=== PATIENT | male | born 1950 | race Caucasian/White ===

== ENCOUNTER 2018-03-19 08:09 | Observation (INO) ==
[2018-03-19] MEDS ORDERED: Morphine Inj 4 MG/ML Vial IV.PUSH PRN (12:53)
[2018-03-19] MEDS ORDERED: Acetaminophen 500 MG Tablet PO PRN (12:53)
[2018-03-19] MEDS ORDERED: Temazepam 15 MG Capsule PO PRN (12:53)
--- NOTE | 2018-03-19 13:44 | P.HP ---
History of Present Illness Primary Care Physician: Frankie Robin History of Present Illness: 68-year-old male with known history of coronary disease, hyper lipidemia, benign prostatic hypertrophy, idiopathic thrombocytopenia purpura who presented to the emergency department because of epigastric discomfort. Patient states that for the last few days he has been experiencing a constant sensation in his epigastric region which he describes as a mild dull achy sensation without any radiation to. Patient states that it is very difficult to quantify when he is resting, however but whenever he gets up and moves the discomfort will go to a 4/10 on a pain scale. Patient states that he did try to take some Zantac without any benefit. He denied any diaphoresis, nausea, vomiting, shortness of breath, dizziness, lightheadedness. Patient indicates that he did have discomfort like this 9 years ago in which he underwent stress test at that time by Dr. Garnett, patient was found to have abnormal stress test and proceeded to cardiac catheterization where he had one stent placement. Since then he has been doing well without any pain. He does not follow up with any industrial economist in a while. Because his chest discomfort has been more pronounced over the last few days, between his girlfriend and his other friends he was forced to go to the ER for evaluation. Patient had workup and was unremarkable. The patient was requested to be followed in the chest pain center for further evaluation and management. - Diagnosis (1) Chest pain (2) Hyperlipidemia (3) Anxiety Inpatient Certification: I certify that the inpatient services were ordered in accordance with Medicare regulations governing the order. This includes certification that hospital inpatient services are reasonable and necessary and in the case of services not specified as inpatient-only under 42 CFR 419.22(n), that they are appropriately provided as inpatient services in accordance to with the 2-midnight benchmark under 43 CFR 412.3(e) Review of Systems All other systems reviewed negative except as stated in HPI Cardiovascular: Reports chest pain PMFSH - History History Provided By: Patient - Medical History Medical History: Medical History (Last Reviewed 03/19/18 @ 13:38 by ARMEN Saenz) Anxiety Avascular necrosis Cryoglobulinemia High cholesterol History of left heart catheterization Idiopathic thrombocytopenia purpura Prostate disorder Transverse myelitis - Surgical History Surgical History: Surgical History (Last Reviewed 03/19/18 @ 13:38 by ARMEN Saenz) Hx of bilateral hip replacements Hx of heart artery stent Hx of lymph node excision Hx of splenectomy - Family History Family History: Family History (Last Updated 03/19/18 @ 13:25 by ARMEN Saenz) Father Heart disease - Tobacco History Smoking Status: Former smoker Tobacco Type: Cigarettes Number of Pack Years (if former smoker): 50 Smoking End Date: 2014 - Alcohol History How Often Do You Have a Drink Containing Alcohol: 4 or more times a week ( Patient drinks between 3-6 beers daily) Medications and Allergies Active Medications: Active Medications Acetaminophen (Tylenol) 500 mg PO Q4H PRN PRN Reason: HEADACHE Hydrocodone Bitart/Acetaminophen ([place] 7.5/325) 1 tab PO Q4H PRN PRN Reason: PAIN SCALE 1 TO 7 Morphine Sulfate (Morphine Inj) 2 mg IV.PUSH Q4H PRN PRN Reason: PAIN SCALE 8 TO 10 Nitroglycerin (Nitrostat Sl) 0.4 mg SL Q5M PRN PRN Reason: CHEST PAIN Ondansetron HCl (Zofran Inj) 4 mg IV.PUSH Q6H PRN PRN Reason: NAUSEA Sodium Chloride (Ns Flush) 2 ml IV.FLUSH BID KEVEN Sodium Chloride (Ns Flush) 2 ml IV.FLUSH PRN PRN PRN Reason: FLUSH AFTER USING IV ACCESS Temazepam (Restoril) 15 mg PO HS PRN PRN Reason: INSOMNIA Allergies Allergy/AdvReac Type Severity Reaction Status Date / Time diclofenac Allergy Severe Bleeding Verified 03/19/18 08:32 etodolac Allergy Severe Bleeding Verified 03/19/18 08:32 flurbiprofen Allergy Severe Bleeding Verified 03/19/18 08:32 ibuprofen Allergy Severe Bleeding Verified 03/19/18 08:32 indomethacin Allergy Severe Bleeding Verified 03/19/18 08:32 ketoprofen Allergy Severe Bleeding Verified 03/19/18 08:32 ketorolac Allergy Severe Bleeding Verified 03/19/18 08:32 naproxen Allergy Severe Bleeding Verified 03/19/18 08:32 oxaprozin Allergy Severe Bleeding Verified 03/19/18 08:32 Influenza Virus Vaccines AdvReac Severe Dizziness Verified 03/19/18 08:32 Home Medications Medication Instructions Recorded Confirmed Type alprazolam [Xanax] 0.5 mg PO BID 03/19/18 03/19/18 History aspirin [Xiomy Chewable Aspirin] 81 mg PO DAILY 03/19/18 03/19/18 History cyclobenzaprine 10 mg PO TID 03/19/18 03/19/18 History simvastatin 40 mg PO QPM 03/19/18 03/19/18 History tamsulosin [Flomax] 0.4 mg PO DAILY 03/19/18 03/19/18 History Exam Vital signs: Vital Signs 03/19/18 12:52 Temperature 96.5 F L Pulse Rate 63 Respiratory Rate 17 Blood Pressure 166/74 H Pulse Oximetry 95 Narrative: GENERAL: Well-developed, well-nourished, in no acute distress. alert and orientated HEENT: Head is normocephalic without any lesions or masses noted. Facial features are symmetric. Eyes: Pupils equal round reactive to light. Extraocular muscles are intact. Conjunctivae were clear. Oropharyngeal: Pharynx without any erythema edema. Tongue is midline without deviation. Buccal mucosa is moist without any masses or lesions NECK: Supple without any masses. Trachea midline no deviation. No JVD, no bruits are appreciated CARDIAC: Regular rhythm, regular rate. S1/S2 are heard. No murmurs gallops or rubs. LUNGS: Clear to auscultation bilaterally. No wheeze, rhonchi or rales. No use of accessory muscles on inspiration or expiration. ABDOMEN: Soft, nontender. Nondistended. Bowel sounds heard in all 4 quadrants. No organomegaly or masses. Negative rebound, negative guarding EXTREMITIES: No edema, pulses are equal bilaterally. No cyanosis or clubbing NEUROLOGY: Mood and affect appear appropriate. Cranial nerves II through XII grossly intact. Muscle strength 5/5 in upper and lower extremities bilaterally. Deep tendon reflexes are 2+ in upper and lower extremities bilaterally. Caprini VTE Risk Assessment Caprini VTE Risk Assessment: No/Low Risk (score <= 1) Caprini Risk Assessment Model: Point Value = 1 Point Value = 2 Point Value = 3 Point Value = 5 Age 41-60 Minor surgery BMI > 25 kg/m2 Swollen legs Varicose veins or History of unexplained or recurrent spontaneous Oral contraceptives or hormone replacement Sepsis (< 1 month) Serious lung disease, including pneumonia (< 1 month) Abnormal pulmonary function Acute myocardial infarction Congestive heart failure (< 1 month) History of inflammatory bowel disease Medical patient at bed rest Age 61-74 Arthroscopic surgery Major open surgery (> 45 min) Laparoscopic surgery (> 45 min) Malignancy Confined to bed (> 72 hours) Immobilizing plaster cast Central venous access Age >= 75 History of VTE Family history of VTE Factor V Leiden Prothrombin [id number] Lupus anticoagulant Anticardiolipin antibodies Elevated serum homocysteine Heparin-induced thrombocytopenia Other congenital or acquired thrombophilia Stroke (< 1 month) Elective arthroplasty Hip, pelvis, or leg fracture Acute spinal cord injury (< 1 month) Prophylaxis Regimen: Total Risk Factor Score Risk Level Prophylaxis Regimen 0-1 Low Early ambulation 2 Moderate Order ONE of the following: *Sequential Compression Device (SCD) *Heparin 5000 units SQ BID 3-4 Higher Order ONE of the following medications: *Heparin 5000 units SQ TID *Enoxaparin/Lovenox 40 mg SQ daily (WT < 150 kg, CrCl > 30 mL/min) *Enoxaparin/Lovenox 30 mg SQ daily (WT < 150 kg, CrCl > 10-29 mL/min) *Enoxaparin/Lovenox 30 mg SQ BID (WT < 150 kg, CrCl > 30 mL/min) AND/OR *Sequential Compression Device (SCD) 5 or more Highest Order ONE of the following medications: *Heparin 5000 units SQ TID (Preferred with Epidurals) *Enoxaparin/Lovenox 40 mg SQ daily (WT < 150 kg, CrCl > 30 mL/min) *Enoxaparin/Lovenox 30 mg SQ daily (WT < 150 kg, CrCl > 10-29 mL/min) *Enoxaparin/Lovenox 30 mg SQ BID (WT < 150 kg, CrCl > 30 mL/min) AND *Sequential Compression Device (SCD) Assessment and Plan - Assessment (1) Chest pain Code(s): R07.9 - Chest pain, unspecified Status: Acute Plan: -Patient does have increased risk factors include age, male, heart disease, family history of heart disease, history of tobacco use -We will continue ruled patient out for acute coronary event with serial cardiac enzymes and serial EKGs -If patient has been ruled out for acute coronary event will anticipate myocardial perfusion study in the morning to rule out any underlying ischemia -Continue with aspirin, statin, nitroglycerin as needed for chest pain -[place], morphine for pain control -Continue monitor telemetry -Continue oxygen (2) Hyperlipidemia Code(s): E78.5 - Hyperlipidemia, unspecified Status: Acute Plan: -Patient home medication be continued -Check lipid panel in the a.m. (3) Anxiety Code(s): F41.9 - Anxiety disorder, unspecified Status: Acute Plan: -Patient's home medication will be continued - Plan DVT prevention -Sequential compression devices
[2018-03-19 16:03] LABS: Creatine Kinase 121 U/L (39-308)
[2018-03-19] MEDS: ALPRAZolam 0.5 MG Tablet PO SCH (22:06)
[2018-03-20] MEDS: ALPRAZolam 0.5 MG Tablet PO SCH (09:21)
--- NOTE | 2018-03-20 09:35 | P.PN ---
Subjective Interval history: 68-year-old male who is seen in follow-up today for chest discomfort. Patient states that he has had intermittent mild chest discomfort throughout the night. Vital signs remained stable, patient is afebrile. Physical Exam Vital signs: Vital Signs 03/19/18 12:52 03/19/18 16:00 03/19/18 16:56 Temperature 96.5 F L 97.2 F L Pulse Rate 63 66 Respiratory Rate 17 17 Blood Pressure 166/74 H 138/75 Pulse Oximetry 95 95 95 03/19/18 20:00 03/20/18 00:00 03/20/18 04:00 Temperature 97.2 F L 97.1 F L 97.3 F L Pulse Rate 67 66 65 Respiratory Rate 20 18 19 Blood Pressure 139/60 115/67 130/59 L Pulse Oximetry 97 97 95 03/20/18 07:16 Temperature 97.4 F L Pulse Rate 68 Respiratory Rate 20 Blood Pressure 117/68 Pulse Oximetry 97 Intake & Output 03/19/18 03/20/18 03/20/18 18:59 06:59 18:59 Intake Total 720 / 720 0 / 0 Balance 720 / 720 0 / 0 Intake: Oral 720 / 720 0 / 0 Other: # Voids 2 3 # Bowel Movements 0 0 Narrative: GENERAL: Well-developed, well-nourished, in no acute distress. alert and orientated HEENT: Head is normocephalic without any lesions or masses noted. Facial features are symmetric. Eyes: Extraocular muscles are intact. Conjunctivae were clear. NECK: Supple without any masses. Trachea midline no deviation. No JVD, CARDIAC: Regular rhythm, regular rate. S1/S2 are heard. No murmurs gallops or rubs. LUNGS: Clear to auscultation bilaterally. No wheeze, rhonchi or rales. No use of accessory muscles on inspiration or expiration. ABDOMEN: Soft, nontender. Nondistended. Bowel sounds heard in all 4 quadrants. No organomegaly or masses. Negative rebound, negative guarding EXTREMITIES: No edema, pulses are equal bilaterally. No cyanosis or clubbing NEUROLOGY: Mood and affect appear appropriate. Cranial nerves II through XII grossly intact. Moving all extremities, speech is clear Results - Labs Laboratory Results - last 24 hr 03/19/18 15:25 Total Creatine Kinase 121 Troponin I Less than 0.02 L - Imaging Myocardial Perfusion Scan Nuc Med 03/20/18 06:00 CONCLUSION: 1. No fixed or reversible wall defect to suggest ischemia or infarction. 2. Normal wall motion and calculated ejection fraction. - Procedures None Assessment and Plan - Assessment (1) Chest pain Code(s): R07.9 - Chest pain, unspecified Status: Inactive Plan: -Patient does have increased risk factors include age, male, heart disease, family history of heart disease, history of tobacco use -Patient had been ruled out for acute coronary event with serial cardiac enzymes are negative, serial EKGs do not show any changes -Myocardial perfusion study was performed and indicated normal study, no signs of ischemia, low risk -Continue with aspirin, statin, nitroglycerin as needed for chest pain -[place], morphine for pain control -Continue monitor telemetry -Continue oxygen (2) Hyperlipidemia Code(s): E78.5 - Hyperlipidemia, unspecified Status: Acute Plan: -Patient home medication be continued -Awaiting lipid panel (3) Anxiety Code(s): F41.9 - Anxiety disorder, unspecified Status: Acute Plan: -Patient's home medication will be continued - Plan DVT prevention -Sequential compression devices Discharge Planning: Discharge home in stable condition Activity: Ad rosemary. Diet: Healthy heart diet Medication per medication reconciliation Follow-up with primary medical doctor in 1 week
[2018-03-20] MEDS ORDERED: Regadenoson Inj 0.4 MG/5 ML Syringe IV.PUSH ONE (10:14)
--- NOTE | 2018-03-20 12:06 | TR ---
Date Performed: 03/20/2018 Time Performed: 10:28:00 DOCTOR: Mabel Go DRUG LIST: CLINICAL HISTORY: REASON FOR TEST: REASON FOR ENDING: OBSERVATION: CONCLUSION: Lexiscan stress test was performed under standard four minute protocol. Radion[place] e was injected one minute prior to ending the test. No electrocardiographic abormalities were present to suggest ischemia. Nuclear imaging and interpretation are pending. COMMENTS: no ischemia
--- NOTE | 2018-03-20 12:21 | NM ---
EXAM DATE: 03/20/2018 11:36 AM EDT AGE/SEX: 68 years / Male INDICATIONS:Angina. Coronary artery disease Chest pain. CLINICAL DATA: This is the patient's initial encounter. Patient reports that signs and symptoms have been present for 1 day and indicates a pain score of 2/10. MEDICAL/SURGICAL HISTORY: Hypertension. Coronary artery stent. Splenectomy. Bilateral hip repl acement. COMPARISON: No prior exams available for comparison. DOSE: 8.3 mCi Tc 99m Myoview at rest 26.9 mCi [id number]-Spdpshw at stress 0.4 mg Lexiscan STRESS SYMPTOMS: None. EJECTION FRACTION: 69 % TECHNIQUE: The patient underwent pharmacologic stress with infusion of prescribed dose. Continuous ECG tracing was monitored during stress. Gated SPECT imaging was performed after stress and conventi onal SPECT imaging was performed at rest. The examination was performed on a SPECT/CT scanner, both attenuation and non-corrected datasets were reviewed. FINDINGS: Distribution: The maximum perfused segment at stress is in the anterior septal wall. Perfusion Study: The pattern of perfusion at stress is within normal limits. Gated Study: There are intact wall motion and wall thickening without hypokinetic or dyskinetic segm ents. The ejection fraction is calculated at 69%. RISK CATEGORY: Low (<1% Annual Motality Rate) CONCLUSION: 1. No fixed or reversible wall defect to suggest ischemia or infarction. 2. Normal wall motion and calculated ejection fraction. Electronically signed by: Darren Tipton MD 03/20/2018 12:19 PM EDT
[2018-03-20 12:43] LABS: Chol/HDL Ratio 2.02 Ratio; HDL Cholesterol 75.4 mg/dL (40.0-60.0)
--- NOTE | 2018-03-20 19:17 | ECG ---
Date Performed: 03/19/2018 Time Performed: 15:33:10 PTAGE: 68 years EKG: Sinus rhythm WITH OCCASIONAL SUPRAVENTRICULAR PREMATURE COMPLEXES BORDERLINE ECG PREVIOUS TRACING : 10/19/2004 11.43 Since the previous tracing, no significant change noted DOCTOR: Alejandro Vera Interpretating Date/Time 03/20/2018 19:16:03
== END 2018-03-20 14:27 | disposition home or self-care (01) ==
LOC: PH3 08:09 → PHEDDLT 08:09
PROVIDERS: ADMIT Family Medicine; ATTEND Family Medicine